=== PATIENT | male | born 1940 | race Caucasian/White ===

== ENCOUNTER 2021-12-19 12:40 | Emergency (ER) | payer MEDICARE, MEDICAID ==
[~2021-12-19] VITALS: Ht 167.6 cm; Wt 82.0 kg
[2021-12-19 15:57] VITALS: BP 147/79
== END 2021-12-19 15:57 | disposition home or self-care (01) ==
LOC: ER 15:49
DX: Z43.6 Encounter for attention to other artificial openings of urinary tract (principal)
CPT/HCPCS: 51702; 99281; 99284; A4315

== ENCOUNTER 2021-12-20 11:36 | Emergency (ER) | payer MEDICAID, MEDICARE ==
[~2021-12-20] VITALS: Ht 167.6 cm; Wt 82.0 kg
[2021-12-20 11:46] VITALS: BP 142/51
== END 2021-12-20 16:40 | disposition home or self-care (01) ==
LOC: ER 11:36
DX: T83.021A Displacement of indwelling urethral catheter, initial encounter (principal); R33.9 Retention of urine, unspecified; Y73.8 Miscellaneous gastroenterology and urology devices associated with adverse incidents, not elsewhere classified; I10 Essential (primary) hypertension; Y92.018 Other place in single-family (private) house as the place of occurrence of the external cause; Z86.73 Personal history of transient ischemic attack (TIA), and cerebral infarction without residual deficits
CPT/HCPCS: 51702; 99284; A4315

== ENCOUNTER 2022-01-25 14:39 | Emergency (ER) | payer MEDICARE ==
[~2022-01-25] VITALS: Ht 167.6 cm; Wt 88.0 kg
[2022-01-25 16:59] LABS: BASOPHILS % 0.4 % (0.0-2.0); EOSINOPHILS % 3.4 % (0.0-5.0); HEMATOCRIT. 36.3 % (42.0-52.0); LYMPHOCYTES % 14.2 % (20.0-50.0); MEAN CORPUSCULAR HEMOGLOBIN 31.5 pg (28.0-32.0); MEAN PLATELET VOLUME 7.2 fl (7.4-10.4); MONOCYTES % 6.5 % (2.0-8.0); NEUTROPHILS % 75.5 % (40.0-76.0); PLATELET 214 x1000/uL (130-400); RED BLOOD CELL COUNT 3.82 mill/uL (4.7-6.1); RED CELL DISTRIBUTION WIDTH 14.4 % (11.6-14.6)
[2022-01-25 17:05] LABS: CHLORIDE 106 mEq/L (98-107)
[2022-01-25 17:52] LABS: CLARITY URINE CLEAR (CLEAR); COLOR URINE YELLOW (YELLOW); KETONES URINE NEGATIVE (NEGATIVE); LEUKOCYTE ESTERASE URINE 3+ (NEGATIVE); NITRITE URINE POSITIVE (NEGATIVE); OCCULT BLOOD URINE 2+ (NEGATIVE); PH URINE 5.5 (4.5-8.0); PROTEIN URINE 2+ (NEGATIVE); SPECIFIC GRAVITY URINE 1.015 (1.005-1.030); UROBILINOGEN URINE 0.2 E.U./dL (0.2-1.0)
[2022-01-25] MEDS ORDERED: CEFTRIAXONE SODIUM 1 G/VIAL IM ONE (18:00)
[2022-01-25 18:17] VITALS: BP 139/68
[2022-01-25] MEDS ORDERED: CEPH500C2 MT (18:33)
== END 2022-01-25 20:08 | disposition home or self-care (01) ==
LOC: ER 14:39
DX: N30.00 Acute cystitis without hematuria (principal); I10 Essential (primary) hypertension; Z86.73 Personal history of transient ischemic attack (TIA), and cerebral infarction without residual deficits
CPT/HCPCS: 36415; 71045; 74176; 80053; 81003; 83605; 83690; 83880; 84484; 85025; 87077; 87086; 87186; 93005; 96372; 99285; J0696; A4315

== ENCOUNTER 2022-10-14 18:28 | Emergency (ER) | payer BC, OTHER ==
[~2022-10-14] VITALS: Ht 167.6 cm; Wt 81.6 kg
[~2022-10-14 18:28] MED LIST: CEPH500C2 MT
[2022-10-14 18:39] VITALS: BP 103/50; PULSE 60; RESP 16; TEMP 98.5; O2SAT 98
[2022-10-14 19:11] LABS: BASOPHILS % 0.5 % (0.0-2.0); EOSINOPHILS % 4.2 % (0.0-5.0); HEMATOCRIT. 33.9 % (42.0-52.0); HEMOGLOBIN. 11.5 g/dL (14.0-18.0); LYMPHOCYTES % 32.4 % (20.0-50.0); MEAN CORPUSCULAR HEMOGLOBIN 31.5 pg (28.0-32.0); MONOCYTES % 9.1 % (2.0-8.0); NEUTROPHILS % 53.8 % (40.0-76.0); PLATELET 183 x1000/uL (130-400); RED BLOOD CELL COUNT 3.65 mill/uL (4.7-6.1); RED CELL DISTRIBUTION WIDTH 13.1 % (11.6-14.6)
[2022-10-14 19:18] LABS: CHLORIDE 107 mEq/L (98-107)
== END 2022-10-15 00:45 | disposition left against medical advice (07) ==
LOC: ER 18:28
DX: Z53.21 Procedure and treatment not carried out due to patient leaving prior to being seen by health care provider (principal)
CPT/HCPCS: 36415; 71045; 80053; 84484; 85025; 93005; 99281

== ENCOUNTER 2023-12-28 19:39 | Emergency (ER) | payer BC, MEDICAID ==
[~2023-12-28] VITALS: Ht 167.6 cm; Wt 75.0 kg
[~2023-12-28 19:39] MED LIST changes: -CEPH500C2 MT; +LEVO250T74 MT
[2023-12-28 19:56] VITALS: O2SAT 100
[2023-12-28 21:00] VITALS: BP 149/83; PULSE 67; RESP 17; TEMP 36.78072; O2SAT 100
== END 2023-12-28 21:37 | disposition home or self-care (01) ==
LOC: ER 19:42
DX: Z46.6 Encounter for fitting and adjustment of urinary device (principal); I10 Essential (primary) hypertension; R00.1 Bradycardia, unspecified; Z86.73 Personal history of transient ischemic attack (TIA), and cerebral infarction without residual deficits
CPT/HCPCS: 51702; 99284

== ENCOUNTER 2024-05-28 15:12 | Inpatient (IN) | payer BC, MEDICARE, MEDICAID ==
[~2024-05-28] VITALS: Ht 177.8 cm; Wt 71.2 kg
[2024-05-28 17:14] LABS: EOSINOPHILS % 2.6 % (0.0-5.0); HEMATOCRIT. 37.2 % (42.0-52.0); HEMOGLOBIN. 12.6 g/dL (14.0-18.0); LYMPHOCYTES % 25.3 % (20.0-50.0); MEAN CORPUSCULAR HEMOGLOBIN 31.2 pg (28.0-32.0); MEAN CORPUSCULAR HGB CONC 33.9 g/dL (31.0-37.0); MEAN CORPUSCULAR VOLUME 91.9 fL (80.0-94.0); MEAN PLATELET VOLUME 7.4 fl (7.4-10.4); MONOCYTES % 6.1 % (2.0-8.0); PLATELET 257 x1000/uL (130-400); RED BLOOD CELL COUNT 4.05 mill/uL (4.7-6.1); RED CELL DISTRIBUTION WIDTH 13.6 % (11.6-14.6); WHITE BLOOD COUNT 7.3 x1000/uL (4.5-11.0)
[2024-05-28 17:34] LABS: CALCIUM 9.5 mg/dL (8.7-10.4)
[2024-05-28 17:39] LABS: CREATININE 1.8 mg/dL (0.6-1.3)
[2024-05-28 20:30] VITALS: BP 147/60; PULSE 63; RESP 18; TEMP 36.4; O2SAT 98
[2024-05-29] VITALS: BP 147/60; PULSE 63; RESP 18; TEMP 36.4
[2024-05-29] MEDS ORDERED: MAGNESIUM/ALUMINUM HYDROXIDE/SIMETHICONE 30ML UDC PO PRN
[2024-05-29] MEDS ORDERED: HYDROCODONE/ACETAMINOPHEN 5/325MG TABLET PO PRN
[2024-05-29] MEDS ORDERED: IPRATROPIUM/ALBUTEROL 0.5-3(2.5)MG/3ML NEB NEB PRN
[2024-05-29] MEDS ORDERED: ACETAMINOPHEN 325MG TABLET PO PRN
[2024-05-29] MEDS ORDERED: ONDANSETRON HCL 4MG/2ML INJ IV PRN
[2024-05-29] MEDS: SODIUM CHLORIDE 0.9% 1,000 ML IV SCH (00:30)
[2024-05-29 04:00] VITALS: BP 164/74; PULSE 61; RESP 18; TEMP 36.4; O2SAT 98; O2SAT 99
[2024-05-29 08:00] VITALS: BP 179/81; PULSE 59; RESP 20; TEMP 36.2; O2SAT 100
[2024-05-29 09:18] LABS: *AMPHETAMINES SCREEN URINE NEGATIVE (NEGATIVE)
[2024-05-29 09:21] LABS: *BARBITURATES SCREEN URINE NEGATIVE (NEGATIVE); *BENZODIAZEPINES SCREEN URINE NEGATIVE (NEGATIVE); *COCAINE SCREEN URINE NEGATIVE (NEGATIVE); METHADONE URINE SCREEN NEGATIVE (NEGATIVE); OPIATES URINE SCREEN NEGATIVE (NEGATIVE); PHENCYCLIDINE URINE SCREEN NEGATIVE (NEGATIVE)
[2024-05-29 09:22] LABS: CANNABINOID URINE SCREEN NEGATIVE (NEGATIVE); ECSTASY MDMA SCREEN URINE NEGATIVE (NEGATIVE)
[2024-05-29] MEDS: ASPIRIN 81MG TABLET PO SCH (09:31)
[2024-05-29] MEDS: PANTOPRAZOLE SODIUM 40 MG/VIAL IV SCH (09:31)
[2024-05-29] MEDS: AMLODIPINE 5MG TABLET PO SCH (09:54)
[2024-05-29 12:00] VITALS: BP 129/72; PULSE 60; RESP 18; TEMP 35.9; O2SAT 100
[2024-05-29] MEDS ORDERED: NALOXONE HCL 0.4MG/ML VIAL IV PRN (12:15)
[2024-05-29] MEDS: HYDRALAZINE HCL 50MG TABLET PO NR (12:16)
[2024-05-29] MEDS: ENOXAPARIN 40MG/0.4ML SYR SUBCUT SCH (12:16)
[2024-05-29] MEDS ORDERED: RELU1TAB PO (13:44)
[2024-05-29 16:00] VITALS: BP 150/71; PULSE 59; RESP 20; TEMP 36.3; O2SAT 100
[2024-05-29 20:00] VITALS: BP 126/60; PULSE 83; RESP 16; TEMP 36.3; O2SAT 99
[2024-05-29] MEDS: HYDRALAZINE HCL 50MG TABLET PO SCH (21:00)
[2024-05-29] MEDS: TRAZODONE HCL 50MG TABLET PO SCH (21:00)
[2024-05-29] MEDS: LEVETIRACETAM 500MG TABLET PO SCH (21:00)
[2024-05-30 04:00] VITALS: BP 130/64; PULSE 87; RESP 20; TEMP 36.1; O2SAT 97
[2024-05-30 06:00] VITALS: BP 130/64; PULSE 87; RESP 20; TEMP 36.1; O2SAT 97
[2024-05-30 08:00] VITALS: BP 148/73; PULSE 60; RESP 16; TEMP 36.7; O2SAT 96
[2024-05-30] MEDS: PANTOPRAZOLE 40MG DR TABLET PO SCH (11:00)
[2024-05-30 12:00] VITALS: BP_SYST 167; BP_SYST 168; BP_SYST 169; BP_DIAS 73; BP_DIAS 74; BP_DIAS 75; PULSE 62; RESP 18; TEMP 36.2; O2SAT 99
[2024-05-30 12:27] LABS: BASOPHILS % 0.5 % (0.0-2.0); EOSINOPHILS % 2.1 % (0.0-5.0); HEMATOCRIT. 37.9 % (42.0-52.0); HEMOGLOBIN. 12.6 g/dL (14.0-18.0); LYMPHOCYTES % 22.6 % (20.0-50.0); MEAN CORPUSCULAR HEMOGLOBIN 30.5 pg (28.0-32.0); MEAN CORPUSCULAR HGB CONC 33.1 g/dL (31.0-37.0); MONOCYTES % 7.3 % (2.0-8.0); NEUTROPHILS % 67.5 % (40.0-76.0); PLATELET 234 x1000/uL (130-400); RED BLOOD CELL COUNT 4.12 mill/uL (4.7-6.1); RED CELL DISTRIBUTION WIDTH 13.5 % (11.6-14.6); WHITE BLOOD COUNT 5.8 x1000/uL (4.5-11.0)
[2024-05-30 12:30] LABS: POTASSIUM 3.7 mEq/L (3.5-5.1)
[2024-05-30 12:31] LABS: CALCIUM 9.4 mg/dL (8.7-10.4)
[2024-05-30 12:36] LABS: CREATININE 1.3 mg/dL (0.6-1.3)
[2024-05-30] MEDS: CLONIDINE 0.1MG TABLET PO PRN (12:41)
[2024-05-30] MEDS: RELUGOLIX PO SCH (12:41)
[2024-05-30 16:00] VITALS: BP 123/54; PULSE 55; RESP 17; TEMP 36.4; O2SAT 99
[2024-05-31] VITALS: BP 138/55; PULSE 60; RESP 18; TEMP 36.7; O2SAT 99
[2024-05-31 04:00] VITALS: BP 128/58; PULSE 72; RESP 18; TEMP 36.6; O2SAT 99
[2024-05-31 08:00] VITALS: BP 149/63; PULSE 89; RESP 18; TEMP 36.3; O2SAT 98
[2024-05-31 11:36] LABS: BASOPHILS % 0.3 % (0.0-2.0); EOSINOPHILS % 2.1 % (0.0-5.0); HEMATOCRIT. 39.5 % (42.0-52.0); HEMOGLOBIN. 13.1 g/dL (14.0-18.0); LYMPHOCYTES % 18.9 % (20.0-50.0); MEAN CORPUSCULAR HEMOGLOBIN 30.6 pg (28.0-32.0); MEAN CORPUSCULAR HGB CONC 33.2 g/dL (31.0-37.0); MEAN CORPUSCULAR VOLUME 92.1 fL (80.0-94.0); MEAN PLATELET VOLUME 7.7 fl (7.4-10.4); MONOCYTES % 5.5 % (2.0-8.0); NEUTROPHILS % 73.2 % (40.0-76.0); PLATELET 288 x1000/uL (130-400); RED BLOOD CELL COUNT 4.29 mill/uL (4.7-6.1); RED CELL DISTRIBUTION WIDTH 13.6 % (11.6-14.6); WHITE BLOOD COUNT 6.6 x1000/uL (4.5-11.0)
[2024-05-31 11:48] LABS: POTASSIUM 3.9 mEq/L (3.5-5.1)
[2024-05-31 11:49] LABS: CALCIUM 9.9 mg/dL (8.7-10.4)
[2024-05-31 11:54] LABS: CREATININE 1.4 mg/dL (0.6-1.3)
[2024-05-31 12:00] VITALS: BP 149/74; PULSE 81; RESP 18; TEMP 36.5; O2SAT 100
[2024-05-31 16:00] VITALS: BP 138/76; PULSE 77; RESP 18; TEMP 36.4; O2SAT 100
[2024-05-31 20:00] VITALS: BP 129/50; PULSE 67; RESP 18; TEMP 36.5; O2SAT 99
[2024-06-01] VITALS: BP 131/55; PULSE 76; RESP 16; TEMP 36.1; O2SAT 99
[2024-06-01 04:00] VITALS: BP 156/63; PULSE 68; RESP 16; TEMP 36.2; O2SAT 99
[2024-06-01 07:42] LABS: CALCIUM 9.4 mg/dL (8.7-10.4)
[2024-06-01 07:47] LABS: CREATININE 1.6 mg/dL (0.6-1.3)
[2024-06-01 08:00] VITALS: BP 136/64; PULSE 87; RESP 16; TEMP 36.1; O2SAT 100
[2024-06-01 08:01] LABS: BASOPHILS % 0.5 % (0.0-2.0); EOSINOPHILS % 3.1 % (0.0-5.0); HEMATOCRIT. 35.8 % (42.0-52.0); HEMOGLOBIN. 12.3 g/dL (14.0-18.0); LYMPHOCYTES % 25.5 % (20.0-50.0); MEAN CORPUSCULAR HEMOGLOBIN 31.5 pg (28.0-32.0); MEAN CORPUSCULAR HGB CONC 34.3 g/dL (31.0-37.0); MEAN CORPUSCULAR VOLUME 92.1 fL (80.0-94.0); MEAN PLATELET VOLUME 7.7 fl (7.4-10.4); MONOCYTES % 8.4 % (2.0-8.0); NEUTROPHILS % 62.5 % (40.0-76.0); PLATELET 226 x1000/uL (130-400); RED BLOOD CELL COUNT 3.89 mill/uL (4.7-6.1); RED CELL DISTRIBUTION WIDTH 13.4 % (11.6-14.6); WHITE BLOOD COUNT 5.5 x1000/uL (4.5-11.0)
[2024-06-01] MEDS: FAMOTIDINE 20MG TABLET PO SCH (10:17)
[2024-06-01 12:00] VITALS: BP 130/62; PULSE 72; RESP 18; TEMP 36.2; O2SAT 99
[2024-06-01 16:00] VITALS: BP 128/71; PULSE 83; RESP 18; TEMP 36.3; O2SAT 99
[2024-06-01 20:00] VITALS: BP 120/50; PULSE 65; RESP 16; TEMP 36.5; O2SAT 99
[2024-06-02] VITALS: BP 130/90; PULSE 50; RESP 16; TEMP 35.9; O2SAT 95
[2024-06-02 04:00] VITALS: BP 146/59; PULSE 62; RESP 16; TEMP 36.2; O2SAT 98
[2024-06-02 08:00] VITALS: BP 137/63; PULSE 60; RESP 16; TEMP 36.4; O2SAT 95
[2024-06-02 12:00] VITALS: BP 138/48; PULSE 62; RESP 18; TEMP 35.7; O2SAT 100
[2024-06-02 16:00] VITALS: BP 130/76; PULSE 60; RESP 18; TEMP 36.7; O2SAT 100
[2024-06-02 20:00] VITALS: BP 142/67; PULSE 72; RESP 20; TEMP 36.3; O2SAT 95
[2024-06-03 04:00] VITALS: BP 125/62; PULSE 58; RESP 20; TEMP 36.4; O2SAT 95
[2024-06-03 08:00] VITALS: BP 122/56; PULSE 63; RESP 19; TEMP 36.4; O2SAT 96
[2024-06-03] MEDS ORDERED: TAMS-11 MT (10:04)
[2024-06-03] MEDS ORDERED: RELUGOLIX PO (10:04)
[2024-06-03] MEDS ORDERED: AMLO10TA80 MT (10:04)
[2024-06-03] MEDS ORDERED: DOXY100C5 MT (10:04)
[2024-06-03] MEDS ORDERED: FINA5TAB11 PO (10:04)
[2024-06-03] MEDS ORDERED: CARB200C7 PO (10:04)
[2024-06-03] MEDS ORDERED: ATOR-2 MT (10:04)
[2024-06-03] MEDS ORDERED: LEVO137C4 PO (10:04)
[2024-06-03] MEDS ORDERED: TOPUD PO (10:04)
[2024-06-03] MEDS ORDERED: *PATIENT'S OWN MEDICATION STORAGE XX SCH (10:30)
[2024-06-03 12:00] VITALS: BP 133/57; PULSE 60; RESP 18; TEMP 36.6; O2SAT 96
[2024-06-03 20:00] VITALS: BP 144/58; PULSE 70; RESP 20; TEMP 36.4; O2SAT 96
[2024-06-04] VITALS: BP 129/56; PULSE 60; RESP 20; TEMP 36.5; O2SAT 95
[2024-06-04 08:00] VITALS: BP 100/66; PULSE 61; RESP 19; TEMP 36.6; O2SAT 98
[2024-06-04 12:00] VITALS: BP 100/66; PULSE 61; RESP 19; TEMP 36.6; O2SAT 98
[2024-06-04 16:00] VITALS: BP 141/63; PULSE 60; RESP 20; TEMP 36.5; O2SAT 98
[2024-06-04 21:37] VITALS: BP 131/53; PULSE 60; TEMP 97.7; O2SAT 99
== END 2024-06-05 00:10 | DRG 552 ==
LOC: ER 15:12 → EDBEDREQTM 19:59 → EDBEDREQ 19:59 → 5WST 20:06 → ER 21:07 → 6EST 06-02 10:38
PROVIDERS: ADMIT Internal Medicine; ATTEND Internal Medicine
DX: M54.9 Dorsalgia, unspecified (principal); N17.9 Acute kidney failure, unspecified; F03.93 Unspecified dementia, unspecified severity, with mood disturbance; I49.9 Cardiac arrhythmia, unspecified; R41.89 Other symptoms and signs involving cognitive functions and awareness; I12.9 Hypertensive chronic kidney disease with stage 1 through stage 4 chronic kidney disease, or unspecified chronic kidney disease; R29.6 Repeated falls; N18.9 Chronic kidney disease, unspecified; F32.A Depression, unspecified; Z95.0 Presence of cardiac pacemaker; Z86.73 Personal history of transient ischemic attack (TIA), and cerebral infarction without residual deficits
CPT/HCPCS: 36415; 80048; 80305; 85025; 93970; 97116; 97162; 99285; A4606; J1650; J2470; J7030